=== PATIENT | female | born 1970 | race Asian ===

== ENCOUNTER → 2016-12-02 | Outpatient (CLI) | payer BC ==
[2016-12-02 13:07] LABS: CH 29.1; HCT 39.7 % (34.0-46.0); HDW 2.33; HGB 13.4 gm/dL (11.4-16.0); MCH 29.8 pg (25.0-35.0); MCHC 33.7 g/dL (31.0-37.0); MCV 88.4 fL (80.0-100.0); Mean Platelet Volume 7.8; RBC 4.49 m/uL (3.80-5.40); RDW 11.9 % (11.5-15.5); WBC 4.5 k/uL (3.8-10.6)
[2016-12-02 13:14] LABS: ALT 45 U/L (9-52); AST 24 U/L (14-36); Alkaline Phosphatase 69 U/L (38-126); Anion Gap 10 mmol/L; Blood Urea Nitrogen 10 mg/dL (7-17); Calcium 9.5 mg/dL (8.4-10.2); Carbon Dioxide 28 mmol/L (22-30); Chloride 102 mmol/L (98-107); Cholesterol 189 mg/dL (<200); Glucose 86 mg/dL (74-99); HDL Cholesterol 68 mg/dL (40-60); Iron 83 ug/dL (37-170); Non-African American GFR(MDRD) >60 (>60 ml/min/1.73 sqM); Potassium 4.1 mmol/L (3.5-5.1); Sodium 140 mmol/L (137-145); Total Bilirubin 0.3 mg/dL (0.2-1.3); Total Protein 7.3 g/dL (6.3-8.2); Triglycerides 83 mg/dL (<150)
--- NOTE | 2016-12-02 13:20 | MM ---
Reason for exam: screening (asymptomatic). Baseline mammogram. Physical Findings: Nurse did not find any significant physical abnormalities on exam. MG Screening Mammo w CAD Bilateral CC and MLO view(s) were taken. The breast tissue is heterogeneously dense. This may lower the sensitivity of mammography. Focal asymmetry upper outer left breast. These results were verbally communicated with the patient and result sheet given to the patient on 12/02/16. ASSESSMENT: Incomplete: need additional imaging evaluation, BI-RAD 0 RECOMMENDATION: Special view mammogram of the left breast. If lesion persists on supplemental views, image directed ultrasound is recommended. [facility] will attempt to contact patient to return for supplemental views and ultrasound if indicated.
[2016-12-02 13:23] LABS: % Iron Saturation 23.6 % (20-50); Total Iron Binding Capacity 352 ug/dL (265-497)
--- NOTE | 2016-12-02 13:23 | MM ---
Reason for exam: additional evaluation requested from abnormal screening. Physical Findings: Breast exam preformed at baseline screening. MG Work Up Mamm w CAD LT ML, spot compression CC, and spot compression MLO view(s) were taken of the left breast. There is no discrete abnormality, including area of concern. These results were verbally communicated with the patient and result sheet given to the patient on 12/02/16. ASSESSMENT: Negative, BI-RAD 1 RECOMMENDATION: Routine screening mammogram of both breasts in 1 year.
--- NOTE | 2016-12-02 13:28 | XR ---
EXAMINATION TYPE: XR chest 2V DATE OF EXAM: 12/02/2016 COMPARISON: NONE TECHNIQUE: PA and lateral views submitted. HISTORY: Screening for TB FINDINGS: The lungs are clear and there is no pneumothorax, pleural effusion, or focal pneumonia. Hyperinflat ion noted. No evidence of granuloma. No pleural-based thickening. No pleural calcification. Hypertrop hic change of the spine. IMPRESSION: 1. No acute process. Correlate for COPD.
== END | disposition home or self-care (01) ==
LOC: RADMAMWWP 11:52
PROVIDERS: ATTEND Internal Medicine Endocrinology, Diabetes & Metabolism
DX: Z12.31 Encounter for screening mammogram for malignant neoplasm of breast (principal); Z11.1 Encounter for screening for respiratory tuberculosis; E03.9 Hypothyroidism, unspecified
CPT/HCPCS: 80061; 80053; 82728; 83540; 83550; 84443; 85027; 87390; 71020; G0202; G0206

== ENCOUNTER → 2017-04-01 | Outpatient (CLI) | payer BC ==
[2017-04-01 11:20] LABS: Basophils % (A) 0 %; CH 30.2; CHCM 33.2; Eosinophils # (A) 0.1 k/uL (0-0.7); Eosinophils % (A) 2 %; HCT 40.4 % (34.0-46.0); HDW 2.24; HGB 13.3 gm/dL (11.4-16.0); Luc # (Auto) 0.11; Luc % (Auto) 3; Lymphocytes # (A) 1.7 k/uL (1.0-4.8); Lymphocytes % (A) 39 %; MCHC 32.9 g/dL (31.0-37.0); MCV 91.2 fL (80.0-100.0); Mean Platelet Volume 7.6; Monocytes # (A) 0.3 k/uL (0-1.0); Monocytes % (A) 8 %; Neutrophils # (A) 2.1 k/uL (1.3-7.7); Neutrophils % (A) 48 %; RBC 4.43 m/uL (3.80-5.40); RDW 12.7 % (11.5-15.5); WBC 4.3 k/uL (3.8-10.6); WBC (Perox) 4.41
[2017-04-01 15:33] LABS: Treponemal Ab Non-Reactive (Non-Reactive)
[2017-04-01 15:58] LABS: RNP AB Interpretation NEGATIVE (NEGATIVE)
[2017-04-02 05:12] LABS: EBV - EA (IgG) <5.0 U/mL (<9.0); EBV - EBNA (IgG) 72.3 U/mL (<18.0)
[2017-04-05 09:34] LABS: Lyme IgG/IgM 0.1 Index; Lyme IgG/IgM Interp NEGATIVE (NEGATIVE)
[2017-04-06 16:01] LABS: Mis test requested (Blood) CMV DNA PCR
== END | disposition home or self-care (01) ==
LOC: LABWHC1 09:43
PROVIDERS: ATTEND Internal Medicine Endocrinology, Diabetes & Metabolism
DX: R90.82 White matter disease, unspecified (principal); R42 Dizziness and giddiness
CPT/HCPCS: 36415; 82533; 82607; 84443; 85025; 86225; 86235; 86618; 86663; 86664; 86665; 86777; 86778; 86780; 87390; 87471; 87497